=== PATIENT | female | born 1975 ===

== ENCOUNTER → 2019-01-22 21:37 | Outpatient (REF) | payer OTHER, SELFPAY ==
[2019-01-23 02:21] LABS: Free T4, Direct Thyroxine 1.31 ng/dL (0.78-2.19)
[2019-01-23 02:35] LABS: Thyroid Stimulating Hormone 0.92 uIU/mL (0.47-4.68)
[2019-01-24 17:06] LABS: Thyroid Peroxidase Antibodies 1 IU/mL (< 9)
[2019-01-25 12:18] LABS: Triiodothyronine T3 Total 79 ng/dL (76-181)
[2019-01-26 15:19] LABS: EBV Virus IgM Ab < 36.00 U/mL (< 36.00); EVB Early IgG > 150.00 U/mL (< 9.00)
== END ==
LOC: LAB 21:37
PROVIDERS: Visit Provider Naturopath
DX: R53.82 Chronic fatigue, unspecified (principal); E03.9 Hypothyroidism, unspecified
CPT/HCPCS: 36415; 83519; 84439; 84443; 84480; 86376; 86663; 86664; 86665